=== PATIENT | male | born 1985 | race Two or more races ===

== ENCOUNTER 2017-07-15 05:37 | Observation (INO) | payer OTHER ==
[2017-07-15] MEDS ORDERED: Metronidazole 500 MG in NS 100 ML IVPB (07:00)
[2017-07-15] MEDS ORDERED: CIPROFLOXACIN 400 MG in D5W 200 ML IVPB (07:00)
[2017-07-15] MEDS ORDERED: SOD CHLORIDE 0.9% 1,000 ML IV (07:00)
[2017-07-15] MEDS ORDERED: BUPIVACAINE 0.25% (MPF) 30 ML INJ (07:12)
[2017-07-15] MEDS ORDERED: ROPIVACAINE 0.5 % 30 ML VIAL (07:31)
[2017-07-15] MEDS ORDERED: PROPOFOL 20 ML (07:31)
[2017-07-15] MEDS ORDERED: MIDAZOLAM 1 MG/ML 2 ML INJ (07:31)
[2017-07-15] MEDS ORDERED: ONDANSETRON 4 MG INJ (07:31)
[2017-07-15] MEDS ORDERED: HYDROmorphONE 2 MG/ML SYG (07:31)
[2017-07-15] MEDS ORDERED: metroNIDAZOLE 500 MG/NS (PMX) 100 ML IVPB (07:31)
[2017-07-15] MEDS ORDERED: METOCLOPRAMIDE 10 MG INJ (07:31)
[2017-07-15] MEDS ORDERED: ROCURONIUM 50 MG INJ ×2 (07:31→08:28)
[2017-07-15] MEDS: POLYMYXIN/BACITRACIN 1L IRRIG IRR (07:37)
[2017-07-15] MEDS: BUPIVACAINE 0.25% (MPF) 30 ML INJ INJ (07:37)
[2017-07-15] MEDS ORDERED: NEOSTIGMINE 3 MG/3 ML SYRINGE (07:57)
[2017-07-15] MEDS ORDERED: CIPROFLOXACIN 400MG/D5W 200 ML (07:57)
[2017-07-15] MEDS ORDERED: EPHEDrine SULFATE 50 MG/5 ML SYG (08:28)
[2017-07-15] MEDS ORDERED: HYDROmorphONE (0.2 MG/ML) 10ML SYG IV ×3 (09:00)
[2017-07-15] MEDS ORDERED: MEPERIDINE 25 MG INJ IV (09:00)
[2017-07-15] MEDS ORDERED: ONDANSETRON 4 MG INJ IV (09:00)
[2017-07-15] MEDS ORDERED: DIPHENHYDRAMINE 50 MG INJ IV (09:00)
[2017-07-15] MEDS: SOD CHLORIDE 0.9% 1,000 ML IV ×2 (11:52→19:37)
[2017-07-15 12:25] LABS: ADD MAN DIFF? NO
[2017-07-15 12:28] LABS: BASOPHIL # 0.1 10^3/ul (0.0-0.1); BASOPHILS % 0.4 % (0.0-2.0); EOSINOPHILS # 0.1 10^3/ul (0.0-0.5); EOSINOPHILS % 0.9 % (0.0-7.0); HEMATOCRIT 45.1 % (42.0-52.0); HEMOGLOBIN 15.1 g/dl (14.0-18.0); LYMPHOCYTES # 1.9 10^3/ul (0.8-2.9); LYMPHOCYTES % 13.8 % (15.0-51.0); MEAN CORPUSCULAR HEMOGLOBIN 29.4 pg (29.0-33.0); MEAN CORPUSCULAR HGB CONC 33.5 g/dl (32.0-37.0); MEAN CORPUSCULAR VOLUME 87.7 fl (82.0-101.0); MEAN PLATELET VOLUME 10.5 fl (7.4-10.4); MONOCYTES % 7.2 % (0.0-11.0); NEUTROPHIL # 10.6 10^3/ul (1.6-7.5); PLATELET COUNT 254 10^3/UL (140-415); RED BLOOD COUNT 5.14 10^6/ul (4.70-6.10); RED CELL DISTRIBUTION WIDTH 11.9 % (11.5-14.5)
[2017-07-15 12:28] LABS: WHITE BLOOD COUNT 13.7 10^3/ul (4.8-10.8)
[2017-07-15 12:58] LABS: ALANINE AMINOTRANSFERASE 61 IU/L (13-69); ALBUMIN 3.9 g/dl (3.3-4.9); ALBUMIN/GLOBULIN RATIO 1.14; ALKALINE PHOSPHATASE 63 IU/L (42-121); ANION GAP 16 (8-16); ASPARTATE AMINO TRANSFERASE 50 IU/L (15-46); BILIRUBIN,INDIRECT 0.4 mg/dl (0-1.1); BILIRUBIN,TOTAL 0.4 mg/dl (0.2-1.3); BLOOD UREA NITROGEN 11 mg/dl (7-20); CALCIUM 8.5 mg/dl (8.4-10.2); CARBON DIOXIDE 26 mmol/L (21-31); CHLORIDE 104 mmol/L (97-110); CREATININE 0.72 mg/dl (0.61-1.24); GLUCOSE 119 mg/dl (70-220); POTASSIUM 4.4 mmol/L (3.5-5.1); SODIUM 142 mmol/L (135-144); TOTAL PROTEIN 7.3 g/dl (6.1-8.1)
[2017-07-15] MEDS: morphine 2 MG INJ IV ×2 (16:11→19:39)
[2017-07-15] MEDS: metroNIDAZOLE 500 MG/NS (PMX) 100 ML IVPB (16:11)
[2017-07-15] MEDS ORDERED: ACETAMINOPHEN 325 MG TAB PO (21:00)
[2017-07-15] MEDS: HYDROmorphONE 0.5 MG/0.5 ML SYG IV (21:13)
[2017-07-15] MEDS: ACETAMINOPHEN 650MG/20.3ML CUP PO (21:21)
[2017-07-15] MEDS: CIPROFLOXACIN 400MG/D5W 200 ML IVPB (21:25)
[2017-07-16] MEDS: SOD CHLORIDE 0.9% 1,000 ML IV ×3 (00:08→15:06)
[2017-07-16] MEDS: metroNIDAZOLE 500 MG/NS (PMX) 100 ML IVPB ×2 (00:08→09:40)
[2017-07-16] MEDS: HYDROmorphONE 0.5 MG/0.5 ML SYG IV ×7 (00:15→22:04)
[2017-07-16] MEDS: PANTOPRAZOLE 40 MG INJ IV (06:30)
[2017-07-16 07:09] LABS: ADD MAN DIFF? NO
[2017-07-16 07:13] LABS: WHITE BLOOD COUNT 13.9 10^3/ul (4.8-10.8)
[2017-07-16 07:13] LABS: BASOPHILS % 0.2 % (0.0-2.0); EOSINOPHILS # 0.4 10^3/ul (0.0-0.5); EOSINOPHILS % 2.6 % (0.0-7.0); HEMATOCRIT 45.3 % (42.0-52.0); HEMOGLOBIN 14.9 g/dl (14.0-18.0); LYMPHOCYTES # 1.9 10^3/ul (0.8-2.9); LYMPHOCYTES % 13.8 % (15.0-51.0); MEAN CORPUSCULAR HEMOGLOBIN 29.1 pg (29.0-33.0); MEAN CORPUSCULAR HGB CONC 32.9 g/dl (32.0-37.0); MEAN CORPUSCULAR VOLUME 88.5 fl (82.0-101.0); MEAN PLATELET VOLUME 10.7 fl (7.4-10.4); MONOCYTE # 1.4 10^3/ul (0.3-0.9); MONOCYTES % 10.3 % (0.0-11.0); NEUTROPHIL # 10.1 10^3/ul (1.6-7.5); NEUTROPHILS % 72.5 % (39.0-77.0); PLATELET COUNT 251 10^3/UL (140-415); RED BLOOD COUNT 5.12 10^6/ul (4.70-6.10); RED CELL DISTRIBUTION WIDTH 11.9 % (11.5-14.5)
[2017-07-16 07:40] LABS: ALANINE AMINOTRANSFERASE 60 IU/L (13-69); ALBUMIN 3.8 g/dl (3.3-4.9); ALBUMIN/GLOBULIN RATIO 1.22; ALKALINE PHOSPHATASE 56 IU/L (42-121); ANION GAP 10 (8-16); ASPARTATE AMINO TRANSFERASE 34 IU/L (15-46); BILIRUBIN,INDIRECT 1.2 mg/dl (0-1.1); BILIRUBIN,TOTAL 1.2 mg/dl (0.2-1.3); BLOOD UREA NITROGEN 8 mg/dl (7-20); CALCIUM 8.8 mg/dl (8.4-10.2); CARBON DIOXIDE 31 mmol/L (21-31); CHLORIDE 103 mmol/L (97-110); GLUCOSE 118 mg/dl (70-220); POTASSIUM 4.2 mmol/L (3.5-5.1); SODIUM 140 mmol/L (135-144); TOTAL PROTEIN 6.9 g/dl (6.1-8.1)
[2017-07-16] MEDS: DIATR MEGLU/DIATRIZOATE SODIUM 120 ML BTL ×2 (08:08→09:00)
[2017-07-16] MEDS: CIPROFLOXACIN 400MG/D5W 200 ML IVPB (10:40)
[2017-07-16] MEDS: LEVALBUTEROL (NEB) 0.63 MG/3 ML AMP HHN (17:58)
[2017-07-16] MEDS: ALBUTEROL/IPRATROPIUM (NEB) 3 ML AMP HHN (19:17)
[2017-07-17] MEDS: HYDROmorphONE 0.5 MG/0.5 ML SYG IV ×4 (00:36→09:29)
[2017-07-17] MEDS: SOD CHLORIDE 0.9% 1,000 ML IV ×2 (00:37→11:54)
[2017-07-17 06:47] LABS: ADD MAN DIFF? NO
[2017-07-17 06:53] LABS: BASOPHILS % 0.4 % (0.0-2.0); EOSINOPHILS # 0.5 10^3/ul (0.0-0.5); HEMATOCRIT 41.9 % (42.0-52.0); HEMOGLOBIN 13.8 g/dl (14.0-18.0); LYMPHOCYTES # 2.4 10^3/ul (0.8-2.9); LYMPHOCYTES % 22.6 % (15.0-51.0); MEAN CORPUSCULAR HEMOGLOBIN 29.4 pg (29.0-33.0); MEAN CORPUSCULAR HGB CONC 32.9 g/dl (32.0-37.0); MEAN CORPUSCULAR VOLUME 89.1 fl (82.0-101.0); MEAN PLATELET VOLUME 10.8 fl (7.4-10.4); MONOCYTE # 1.2 10^3/ul (0.3-0.9); MONOCYTES % 11.8 % (0.0-11.0); NEUTROPHIL # 6.3 10^3/ul (1.6-7.5); NEUTROPHILS % 59.8 % (39.0-77.0); PLATELET COUNT 251 10^3/UL (140-415)
[2017-07-17 06:53] LABS: WHITE BLOOD COUNT 10.5 10^3/ul (4.8-10.8)
[2017-07-17] MEDS: PANTOPRAZOLE 40 MG INJ IV (07:05)
[2017-07-17 07:15] LABS: ALANINE AMINOTRANSFERASE 33 IU/L (13-69); ALBUMIN 3.6 g/dl (3.3-4.9); ALBUMIN/GLOBULIN RATIO 1.09; ALKALINE PHOSPHATASE 53 IU/L (42-121); ANION GAP 11 (8-16); ASPARTATE AMINO TRANSFERASE 22 IU/L (15-46); BILIRUBIN,INDIRECT 1.2 mg/dl (0-1.1); BILIRUBIN,TOTAL 1.2 mg/dl (0.2-1.3); BLOOD UREA NITROGEN 10 mg/dl (7-20); CALCIUM 8.8 mg/dl (8.4-10.2); CARBON DIOXIDE 30 mmol/L (21-31); CHLORIDE 103 mmol/L (97-110); CREATININE 0.74 mg/dl (0.61-1.24); GLUCOSE 95 mg/dl (70-220); POTASSIUM 3.9 mmol/L (3.5-5.1); SODIUM 140 mmol/L (135-144); TOTAL PROTEIN 6.9 g/dl (6.1-8.1)
== END 2017-07-17 16:45 | disposition home or self-care (01) ==
LOC: SDS 05:37 → REC 09:37 → PP2 10:55
PROVIDERS: Surgery
DX: K21.9 Gastro-esophageal reflux disease without esophagitis (principal); K95.89 Other complications of other bariatric procedure; Y84.8 Other medical procedures as the cause of abnormal reaction of the patient, or of later complication, without mention of misadventure at the time of the procedure
CPT/HCPCS: 43280; 71045; 74240; 80053; 85025; 94640; 94664; 99217; G0378

== ENCOUNTER 2017-08-12 06:32 | Observation (INO) | payer OTHER ==
[~2017-08-12 06:32] MED LIST: ATROPINE 1 MG/10 ML SYRINGE IV; DEXAMETHASONE 4 MG/ML 1 ML INJ; DIPHENHYDRAMINE 50 MG INJ IV; EPHEDrine SULFATE 50 MG/5 ML SYG IV; FENTAnyl 50 MCG/ML VIAL; FENTAnyl 50 MCG/ML VIAL IV; GLYCOPYRROLATE 0.4 MG INJ; HYDROmorphONE (0.2 MG/ML) 10ML SYG IV; LABETALOL HCL 20MG INJ IV; LIDOCAINE 2% (SDV) 5 ML INJ; MIDAZOLAM 1 MG/ML 2 ML INJ; MIDAZOLAM 1 MG/ML 2 ML INJ IV; NEOSTIGMINE 3 MG/3 ML SYRINGE; ONDANSETRON 4 MG INJ; ONDANSETRON 4 MG INJ IV; OXYCODONE/ACETAMINOPHEN (5/325) TAB PO; PROPOFOL 20 ML; ROCURONIUM 50 MG INJ; ROPIVACAINE 0.5 % 30 ML VIAL; hydrALAzine 20 MG INJ IV; morphine (1 MG/ML) 10ML SYRINGE IV
[2017-08-12] MEDS ORDERED: SUCCINYLCHOLINE CHLORIDE 100 MG/5 ML SYG IV (06:39)
[2017-08-12] MEDS ORDERED: LABETALOL 100MG INJ (07:00)
[2017-08-12] MEDS ORDERED: hydrALAzine 20 MG INJ (07:00)
[2017-08-12] MEDS: POLYMYXIN/BACITRACIN 1L IRRIG IRR (08:10)
[2017-08-12] MEDS: morphine SULFATE/PF (10 MG/10 ML) INJ (10:20)
[2017-08-12] MEDS: ROPIVACAINE 0.5 % 30 ML VIAL (10:20)
[2017-08-12] MEDS ORDERED: POLYMYXIN/BACITRACIN 1L IRRIG (10:47)
[2017-08-12] MEDS: MEPERIDINE 25 MG INJ IV (10:51)
[2017-08-12] MEDS: HYDROmorphONE (0.2 MG/ML) 10ML SYG IV ×2 (10:51→10:53)
[2017-08-12] MEDS: KETOROLAC 30 MG INJ IV (10:54)
[2017-08-12] MEDS: FENTAnyl 50 MCG/ML VIAL IV (11:42)
[2017-08-12] MEDS: HYDROCODONE/APAP (10/325) TAB PO (14:09)
[2017-08-12] MEDS ORDERED: ONDANSETRON 4 MG INJ IV (15:30)
[2017-08-12] MEDS: VANCOMYCIN 1 GM (PMX) 250 ML IVPB (16:42)
[2017-08-12] MEDS: OXYCODONE/ACETAMINOPHEN (5/325) TAB PO ×2 (16:42→23:31)
[2017-08-12] MEDS: morphine 2 MG INJ IV (19:44)
[2017-08-13] MEDS: VANCOMYCIN 1 GM (PMX) 250 ML IVPB (04:08)
[2017-08-13] MEDS: OXYCODONE/ACETAMINOPHEN (5/325) TAB PO ×4 (04:11→18:14)
[2017-08-13] MEDS: morphine 10 MG INJ IV ×2 (12:08→16:58)
[2017-08-13] MEDS: RIVAROXABAN 10 MG TABLET PO (18:16)
[2017-08-13] MEDS: PREGABALIN 75 MG CAP PO (20:25)
[2017-08-13] MEDS: oxyCODONE 5 MG TAB PO (20:25)
[2017-08-13] MEDS: MINERAL OIL 30ML CUP PO (20:26)
[2017-08-13] MEDS: SENNA/DOCUSATE NA (8.6MG/50MG) TAB PO (20:26)
[2017-08-13] MEDS: POLYETHYLENE GLYCOL 17 GM PACKET PO (20:29)
[2017-08-13] MEDS: DIPHENHYDRAMINE 25 MG CAP PO (22:24)
[2017-08-13] MEDS: HYDROmorphONE 1 MG/ML SYG IV (23:31)
[2017-08-14] MEDS: oxyCODONE 5 MG TAB PO ×7 (00:04→23:30)
[2017-08-14] MEDS: DIPHENHYDRAMINE 25 MG CAP PO ×3 (03:06→21:32)
[2017-08-14] MEDS: HYDROmorphONE 1 MG/ML SYG IV ×4 (03:06→14:11)
[2017-08-14] MEDS: SENNA/DOCUSATE NA (8.6MG/50MG) TAB PO (09:31)
[2017-08-14] MEDS: HYDROmorphONE 2 MG TAB PO ×2 (17:06→21:32)
[2017-08-14] MEDS: RIVAROXABAN 10 MG TABLET PO (18:02)
[2017-08-15] MEDS: HYDROmorphONE 2 MG TAB PO ×3 (01:49→09:49)
[2017-08-15] MEDS: ERGOCALCIFEROL 50,000 UNIT CAP PO (01:49)
[2017-08-15] MEDS: oxyCODONE 5 MG TAB PO ×3 (04:15→12:38)
[2017-08-15] MEDS: SENNA/DOCUSATE NA (8.6MG/50MG) TAB PO (09:06)
== END 2017-08-15 13:41 | disposition home or self-care (01) ==
LOC: SDS 06:32 → MS1 16:24 → SDS 16:38 → MS1 15:13
DX: S83.511A Sprain of anterior cruciate ligament of right knee, initial encounter (principal); S83.241A Other tear of medial meniscus, current injury, right knee, initial encounter; S83.281A Other tear of lateral meniscus, current injury, right knee, initial encounter; X58.XXXA Exposure to other specified factors, initial encounter; Z88.0 Allergy status to penicillin
CPT/HCPCS: 29881; 82306; 97116; 97161

== ENCOUNTER 2018-05-02 06:00 | Day surgery (SDC) | payer OTHER ==
[~2018-05-02 06:00] MED LIST changes: -ATROPINE 1 MG/10 ML SYRINGE IV; -DEXAMETHASONE 4 MG/ML 1 ML INJ; -DIPHENHYDRAMINE 50 MG INJ IV; -EPHEDrine SULFATE 50 MG/5 ML SYG IV; -FENTAnyl 50 MCG/ML VIAL; -FENTAnyl 50 MCG/ML VIAL IV; -GLYCOPYRROLATE 0.4 MG INJ; -HYDROmorphONE (0.2 MG/ML) 10ML SYG IV; -LABETALOL HCL 20MG INJ IV; -LIDOCAINE 2% (SDV) 5 ML INJ; -MIDAZOLAM 1 MG/ML 2 ML INJ; -MIDAZOLAM 1 MG/ML 2 ML INJ IV; -NEOSTIGMINE 3 MG/3 ML SYRINGE; -ONDANSETRON 4 MG INJ; -ONDANSETRON 4 MG INJ IV; -OXYCODONE/ACETAMINOPHEN (5/325) TAB PO; -PROPOFOL 20 ML; -ROCURONIUM 50 MG INJ; -ROPIVACAINE 0.5 % 30 ML VIAL; +SOD CHLORIDE 0.9% 1,000 ML IV; +[UNRECOGNIZED DRUG - REMARK] XX; -hydrALAzine 20 MG INJ IV; -morphine (1 MG/ML) 10ML SYRINGE IV
[2018-05-02] MEDS: SOD CHLORIDE 0.9% 1,000 ML IV (06:59)
[2018-05-02] MEDS ORDERED: DESFLURANE 15 MIN (07:00)
[2018-05-02 07:13] LABS: ADD MAN DIFF? NO
[2018-05-02 07:17] LABS: BASOPHILS % 0.5 % (0.0-2.0); EOSINOPHILS # 0.4 10^3/ul (0.0-0.5); EOSINOPHILS % 4.4 % (0.0-7.0); HEMATOCRIT 47.7 % (42.0-52.0); HEMOGLOBIN 16.1 g/dl (14.0-18.0); LYMPHOCYTES # 2.9 10^3/ul (0.8-2.9); MEAN CORPUSCULAR HEMOGLOBIN 29.3 pg (29.0-33.0); MEAN CORPUSCULAR HGB CONC 33.8 g/dl (32.0-37.0); MEAN CORPUSCULAR VOLUME 86.7 fl (82.0-101.0); MEAN PLATELET VOLUME 10.4 fl (7.4-10.4); MONOCYTE # 0.8 10^3/ul (0.3-0.9); MONOCYTES % 10.3 % (0.0-11.0); NEUTROPHIL # 3.9 10^3/ul (1.6-7.5); NEUTROPHILS % 48.4 % (39.0-77.0); PLATELET COUNT 295 10^3/UL (140-415); RED CELL DISTRIBUTION WIDTH 11.7 % (11.5-14.5)
[2018-05-02 07:20] LABS: INR 0.95; PROTIME 12.8 Sec (11.9-14.9)
[2018-05-02 07:21] LABS: PARTIAL THROMBOPLASTIN TIME 27.5 Sec (23.0-35.0)
[2018-05-02 07:23] LABS: ALANINE AMINOTRANSFERASE 43 IU/L (13-69); ALBUMIN 4.6 g/dl (3.3-4.9); ALBUMIN/GLOBULIN RATIO 1.24; ALKALINE PHOSPHATASE 66 IU/L (42-121); ANION GAP 13 (5-13); ASPARTATE AMINO TRANSFERASE 30 IU/L (15-46); BILIRUBIN,INDIRECT 0.4 mg/dl (0-1.1); BILIRUBIN,TOTAL 0.4 mg/dl (0.2-1.3); BLOOD UREA NITROGEN 16 mg/dl (7-20); CALCIUM 9.7 mg/dl (8.4-10.2); CARBON DIOXIDE 26 mmol/L (21-31); CHLORIDE 103 mmol/L (97-110); CREATININE 0.82 mg/dl (0.61-1.24); Estimated GFR > 60 mL/min (>60); GLUCOSE 106 mg/dl (70-220); POTASSIUM 4.1 mmol/L (3.5-5.1); SODIUM 142 mmol/L (135-144); TOTAL PROTEIN 8.3 g/dl (6.1-8.1)
[2018-05-02] MEDS ORDERED: BUPIVACAINE 0.25% (MPF) 30 ML INJ (07:47)
[2018-05-02] MEDS: CLINDAMYCIN 600 MG/D5W (PMX) 50 ML IVPB (08:03)
[2018-05-02] MEDS ORDERED: PROPOFOL 20 ML (08:05)
[2018-05-02] MEDS ORDERED: FENTAnyl 50 MCG/ML VIAL ×2 (08:05→08:24)
[2018-05-02] MEDS ORDERED: ROCURONIUM 50 MG INJ (08:05)
[2018-05-02] MEDS ORDERED: LIDOCAINE 1% (MDV) 20 ML INJ (08:05)
[2018-05-02] MEDS ORDERED: DEXAMETHASONE 4 MG/ML 5 ML INJ (08:15)
[2018-05-02] MEDS ORDERED: ONDANSETRON 4 MG INJ (08:15)
[2018-05-02] MEDS ORDERED: ROPIVACAINE 0.5 % 30 ML VIAL (08:16)
[2018-05-02] MEDS ORDERED: HYDROmorphONE 1 MG/5 ML IV SYRINGE IV (08:30)
[2018-05-02] MEDS ORDERED: GLYCOPYRROLATE 0.4 MG INJ (08:34)
[2018-05-02] MEDS ORDERED: NEOSTIGMINE 3 MG/3 ML SYRINGE ×2 (08:34)
[2018-05-02] MEDS ORDERED: MEPERIDINE 25 MG INJ (09:10)
[2018-05-02] MEDS: HYDROmorphONE 1 MG/5 ML IV SYRINGE IV (09:35)
[2018-05-02] MEDS: MEPERIDINE 25 MG INJ IV (09:40)
[2018-05-02] MEDS: HYDROCODONE/APAP (5/325) TAB PO (11:00)
== END 2018-05-02 12:17 | disposition home or self-care (01) ==
LOC: SDS 06:00
DX: K80.20 Calculus of gallbladder without cholecystitis without obstruction (principal)
CPT/HCPCS: 47562; 80053; 85025; 85610; 85730; 88304

== ENCOUNTER 2018-05-08 12:10 | Emergency (ER) | payer OTHER ==
[2018-05-08] MEDS: ONDANSETRON (ODT) 4 MG TAB ODT (14:53)
[2018-05-08] MEDS: HYDROCODONE/APAP (5/325) TAB PO (14:53)
[2018-05-08 14:56] LABS: ADD MAN DIFF? NO
[2018-05-08 15:00] LABS: BASOPHIL # 0.1 10^3/ul (0.0-0.1); BASOPHILS % 0.3 % (0.0-2.0); EOSINOPHILS # 0.6 10^3/ul (0.0-0.5); EOSINOPHILS % 3.5 % (0.0-7.0); HEMATOCRIT 47.5 % (42.0-52.0); HEMOGLOBIN 15.9 g/dl (14.0-18.0); LYMPHOCYTES # 2.9 10^3/ul (0.8-2.9); MEAN CORPUSCULAR HEMOGLOBIN 28.8 pg (29.0-33.0); MEAN CORPUSCULAR HGB CONC 33.5 g/dl (32.0-37.0); MEAN CORPUSCULAR VOLUME 85.9 fl (82.0-101.0); MEAN PLATELET VOLUME 9.9 fl (7.4-10.4); MONOCYTE # 1.4 10^3/ul (0.3-0.9); MONOCYTES % 8.6 % (0.0-11.0); NEUTROPHIL # 10.9 10^3/ul (1.6-7.5); NEUTROPHILS % 69.2 % (39.0-77.0); PLATELET COUNT 340 10^3/UL (140-415); RED BLOOD COUNT 5.53 10^6/ul (4.70-6.10); RED CELL DISTRIBUTION WIDTH 11.8 % (11.5-14.5)
[2018-05-08 15:00] LABS: WHITE BLOOD COUNT 15.8 10^3/ul (4.8-10.8)
[2018-05-08 15:12] LABS: ADD UMIC NO; UR ASCORBIC ACID NEGATIVE (NEGATIVE); UR BILIRUBIN (Dip) NEGATIVE (NEGATIVE); UR BLOOD (Dip) NEGATIVE (NEGATIVE); UR CALCIUM OXALATE CRYSTAL FEW /HPF (NONE SEEN); UR CLARITY SLIGHTLY CLOUDY (CLEAR); UR COLOR YELLOW (YELLOW); UR GLUCOSE (Dip) NEGATIVE (NEGATIVE); UR KETONES (Dip) NEGATIVE (NEGATIVE); UR LEUKOCYTE ESTERASE (Dip) NEGATIVE Leu/ul (NEGATIVE); UR MUCUS MODERATE /HPF (NONE SEEN); UR NITRITE (Dip) NEGATIVE (NEGATIVE); UR RBC 20 /HPF (0-5); UR SPECIFIC GRAVITY (Dip) 1.027 (1.003-1.030); UR TOTAL PROTEIN (Dip) NEGATIVE (NEGATIVE); UR UROBILINOGEN (Dip) NEGATIVE (NEGATIVE); UR WBC 1 /HPF (0-5)
[2018-05-08 15:17] LABS: ALANINE AMINOTRANSFERASE 37 IU/L (13-69); ALBUMIN 4.6 g/dl (3.3-4.9); ALBUMIN/GLOBULIN RATIO 1.15; ALKALINE PHOSPHATASE 70 IU/L (42-121); ANION GAP 12 (5-13); ASPARTATE AMINO TRANSFERASE 25 IU/L (15-46); BILIRUBIN,INDIRECT 0.2 mg/dl (0-1.1); BILIRUBIN,TOTAL 0.2 mg/dl (0.2-1.3); BLOOD UREA NITROGEN 12 mg/dl (7-20); CALCIUM 9.7 mg/dl (8.4-10.2); CARBON DIOXIDE 29 mmol/L (21-31); CHLORIDE 101 mmol/L (97-110); CREATININE 0.76 mg/dl (0.61-1.24); Estimated GFR > 60 mL/min (>60); GLUCOSE 89 mg/dl (70-220); LIPASE 75 U/L (23-300); POTASSIUM 4.3 mmol/L (3.5-5.1); SODIUM 142 mmol/L (135-144); TOTAL PROTEIN 8.6 g/dl (6.1-8.1)
== END 2018-05-08 16:15 | disposition home or self-care (01) ==
LOC: FTE 12:10
DX: R10.9 Unspecified abdominal pain (principal); F17.210 Nicotine dependence, cigarettes, uncomplicated
CPT/HCPCS: 36415; 74176; 80053; 81001; 81003; 83690; 85025; 99284-25

== ENCOUNTER 2018-07-14 06:21 | Inpatient (IN) | payer OTHER ==
[2018-07-14] MEDS: CLINDAMYCIN 600 MG/D5W (PMX) 50 ML IVPB ×3 (06:00→18:14)
[2018-07-14 07:26] LABS: ADD MAN DIFF? NO
[2018-07-14 07:30] LABS: WHITE BLOOD COUNT 9.2 10^3/ul (4.8-10.8)
[2018-07-14 07:30] LABS: BASOPHILS % 0.4 % (0.0-2.0); EOSINOPHILS # 0.6 10^3/ul (0.0-0.5); EOSINOPHILS % 6.3 % (0.0-7.0); HEMATOCRIT 42.9 % (42.0-52.0); HEMOGLOBIN 14.2 g/dl (14.0-18.0); LYMPHOCYTES # 3.8 10^3/ul (0.8-2.9); LYMPHOCYTES % 41.5 % (15.0-51.0); MEAN CORPUSCULAR HEMOGLOBIN 28.8 pg (29.0-33.0); MEAN CORPUSCULAR HGB CONC 33.1 g/dl (32.0-37.0); MEAN PLATELET VOLUME 10.8 fl (7.4-10.4); MONOCYTE # 0.9 10^3/ul (0.3-0.9); MONOCYTES % 10.3 % (0.0-11.0); NEUTROPHIL # 3.7 10^3/ul (1.6-7.5); NEUTROPHILS % 40.8 % (39.0-77.0); PLATELET COUNT 290 10^3/UL (140-415); RED BLOOD COUNT 4.93 10^6/ul (4.70-6.10); RED CELL DISTRIBUTION WIDTH 12.9 % (11.5-14.5)
[2018-07-14] MEDS: SOD CHLORIDE 0.9% 1,000 ML IV ×3 (07:36→21:59)
[2018-07-14 07:48] LABS: PROTIME 12.3 Sec (11.9-14.9)
[2018-07-14 07:58] LABS: ALANINE AMINOTRANSFERASE 32 IU/L (13-69); ALBUMIN 4.1 g/dl (3.3-4.9); ALBUMIN/GLOBULIN RATIO 1.28; ALKALINE PHOSPHATASE 81 IU/L (42-121); ANION GAP 11 (5-13); ASPARTATE AMINO TRANSFERASE 20 IU/L (15-46); BILIRUBIN,INDIRECT 0.4 mg/dl (0-1.1); BILIRUBIN,TOTAL 0.4 mg/dl (0.2-1.3); BLOOD UREA NITROGEN 15 mg/dl (7-20); CALCIUM 9.2 mg/dl (8.4-10.2); CARBON DIOXIDE 25 mmol/L (21-31); CHLORIDE 108 mmol/L (97-110); CREATININE 0.81 mg/dl (0.61-1.24); Estimated GFR > 60 mL/min (>60); GLUCOSE 114 mg/dl (70-220); POTASSIUM 3.9 mmol/L (3.5-5.1); SODIUM 144 mmol/L (135-144); TOTAL PROTEIN 7.3 g/dl (6.1-8.1)
[2018-07-14 09:04] LABS: PARTIAL THROMBOPLASTIN TIME 24.7 Sec (23.0-35.0)
[2018-07-14] MEDS ORDERED: CEFAZOLIN 1 GM INJ (09:10)
[2018-07-14] MEDS ORDERED: GLYCOPYRROLATE 0.4 MG INJ (09:10)
[2018-07-14] MEDS ORDERED: MIDAZOLAM 1 MG/ML 2 ML INJ (09:10)
[2018-07-14] MEDS ORDERED: ROCURONIUM 50 MG INJ ×2 (09:10→10:31)
[2018-07-14] MEDS ORDERED: NEOSTIGMINE 3 MG/3 ML SYRINGE (09:10)
[2018-07-14] MEDS ORDERED: PROPOFOL 20 ML (09:10)
[2018-07-14] MEDS ORDERED: DEXAMETHASONE 4 MG/ML 5 ML INJ (09:11)
[2018-07-14] MEDS ORDERED: ONDANSETRON 4 MG INJ (09:11)
[2018-07-14] MEDS ORDERED: FENTAnyl 50 MCG/ML VIAL (09:11)
[2018-07-14] MEDS ORDERED: ROPIVACAINE 0.5 % 30 ML VIAL (09:24)
[2018-07-14] MEDS ORDERED: MIDAZOLAM 1 MG/ML 2 ML INJ IV (09:30)
[2018-07-14] MEDS ORDERED: TRIMETHOBENZAMIDE 100 MG/ML VIAL IM (09:30)
[2018-07-14] MEDS ORDERED: ALBUTEROL 0.083% (NEB) 2.5 MG/3 ML AMP HHN (09:30)
[2018-07-14] MEDS ORDERED: IPRATROPIUM (NEB) 0.5 MG/2.5 ML AMP HHN (09:30)
[2018-07-14] MEDS ORDERED: FENTAnyl 50 MCG/ML VIAL IV ×3 (09:30)
[2018-07-14] MEDS ORDERED: EPHEDrine SULFATE 50 MG/5 ML SYG IV (09:30)
[2018-07-14] MEDS ORDERED: OXYCODONE/ACETAMINOPHEN (5/325) TAB PO ×2 (09:30)
[2018-07-14] MEDS ORDERED: HYDROmorphONE 1 MG/5 ML IV SYRINGE IV (09:30)
[2018-07-14] MEDS ORDERED: DIPHENHYDRAMINE 50 MG INJ IV (09:30)
[2018-07-14] MEDS ORDERED: LABETALOL HCL 20MG INJ IV (09:30)
[2018-07-14] MEDS ORDERED: hydrALAzine 20 MG INJ IV (09:30)
[2018-07-14] MEDS: BUPIVACAINE 0.25% (MPF) 30 ML INJ (10:08)
[2018-07-14] MEDS ORDERED: SUGAMMADEX SODIUM 200 MG/2 ML VIAL IV (11:20)
[2018-07-14] MEDS ORDERED: OXYCODONE 5 MG/5 ML POSYG PO ×2 (11:30→12:00)
[2018-07-14] MEDS ORDERED: ONDANSETRON 4 MG INJ IV (11:30)
[2018-07-14] MEDS: HYDROmorphONE 1 MG/5 ML IV SYRINGE IV ×2 (11:37→11:55)
[2018-07-14] MEDS: ONDANSETRON 4 MG INJ IV (11:38)
[2018-07-14] MEDS: MEPERIDINE 25 MG INJ IV (11:38)
[2018-07-14 11:57] LABS: ADD MAN DIFF? NO
[2018-07-14 12:17] LABS: BASOPHIL # 0.1 10^3/ul (0.0-0.1); BASOPHILS % 0.6 % (0.0-2.0); EOSINOPHILS # 0.5 10^3/ul (0.0-0.5); EOSINOPHILS % 5.7 % (0.0-7.0); HEMATOCRIT 44.4 % (42.0-52.0); HEMOGLOBIN 14.6 g/dl (14.0-18.0); LYMPHOCYTES # 4.2 10^3/ul (0.8-2.9); LYMPHOCYTES % 46.5 % (15.0-51.0); MEAN CORPUSCULAR HEMOGLOBIN 28.9 pg (29.0-33.0); MEAN CORPUSCULAR HGB CONC 32.9 g/dl (32.0-37.0); MEAN CORPUSCULAR VOLUME 87.7 fl (82.0-101.0); MEAN PLATELET VOLUME 10.5 fl (7.4-10.4); MONOCYTE # 0.7 10^3/ul (0.3-0.9); MONOCYTES % 7.6 % (0.0-11.0); NEUTROPHIL # 3.5 10^3/ul (1.6-7.5); NEUTROPHILS % 38.4 % (39.0-77.0); PLATELET COUNT 289 10^3/UL (140-415); RED BLOOD COUNT 5.06 10^6/ul (4.70-6.10); RED CELL DISTRIBUTION WIDTH 13.2 % (11.5-14.5)
[2018-07-14 12:24] LABS: ALANINE AMINOTRANSFERASE 45 IU/L (13-69); ALBUMIN/GLOBULIN RATIO 1.42; ALKALINE PHOSPHATASE 66 IU/L (42-121); ANION GAP 11 (5-13); ASPARTATE AMINO TRANSFERASE 32 IU/L (15-46); BILIRUBIN,INDIRECT 0.3 mg/dl (0-1.1); BILIRUBIN,TOTAL 0.3 mg/dl (0.2-1.3); BLOOD UREA NITROGEN 14 mg/dl (7-20); CALCIUM 8.6 mg/dl (8.4-10.2); CARBON DIOXIDE 25 mmol/L (21-31); CHLORIDE 108 mmol/L (97-110); CREATININE 0.78 mg/dl (0.61-1.24); Estimated GFR > 60 mL/min (>60); GLUCOSE 117 mg/dl (70-220); POTASSIUM 4.5 mmol/L (3.5-5.1); SODIUM 144 mmol/L (135-144); TOTAL PROTEIN 6.8 g/dl (6.1-8.1)
[2018-07-14] MEDS: oxyCODONE 5 MG TAB PO (12:30)
[2018-07-14] MEDS: morphine 2 MG INJ IV ×4 (14:17→21:58)
[2018-07-15] MEDS: CLINDAMYCIN 600 MG/D5W (PMX) 50 ML IVPB ×5 (00:20→23:15)
[2018-07-15] MEDS: HYDROmorphONE 0.5 MG/0.5 ML SYG IV ×8 (00:20→23:15)
[2018-07-15 05:11] LABS: ADD MAN DIFF? NO
[2018-07-15 05:22] LABS: WHITE BLOOD COUNT 11.4 10^3/ul (4.8-10.8)
[2018-07-15 05:22] LABS: BASOPHILS % 0.2 % (0.0-2.0); LYMPHOCYTES # 1.6 10^3/ul (0.8-2.9); LYMPHOCYTES % 14.3 % (15.0-51.0); MEAN CORPUSCULAR HEMOGLOBIN 28.7 pg (29.0-33.0); MEAN CORPUSCULAR HGB CONC 33.3 g/dl (32.0-37.0); MEAN CORPUSCULAR VOLUME 86.2 fl (82.0-101.0); MEAN PLATELET VOLUME 10.5 fl (7.4-10.4); MONOCYTE # 0.9 10^3/ul (0.3-0.9); MONOCYTES % 8.1 % (0.0-11.0); NEUTROPHIL # 8.8 10^3/ul (1.6-7.5); PLATELET COUNT 328 10^3/UL (140-415); RED BLOOD COUNT 5.22 10^6/ul (4.70-6.10); RED CELL DISTRIBUTION WIDTH 12.7 % (11.5-14.5)
[2018-07-15 05:28] LABS: ALANINE AMINOTRANSFERASE 39 IU/L (13-69); ALBUMIN/GLOBULIN RATIO 1.17; ALKALINE PHOSPHATASE 63 IU/L (42-121); ANION GAP 10 (5-13); ASPARTATE AMINO TRANSFERASE 24 IU/L (15-46); BILIRUBIN,INDIRECT 0.8 mg/dl (0-1.1); BILIRUBIN,TOTAL 0.8 mg/dl (0.2-1.3); BLOOD UREA NITROGEN 11 mg/dl (7-20); CALCIUM 9.3 mg/dl (8.4-10.2); CARBON DIOXIDE 27 mmol/L (21-31); CHLORIDE 104 mmol/L (97-110); CREATININE 0.62 mg/dl (0.61-1.24); Estimated GFR > 60 mL/min (>60); GLUCOSE 140 mg/dl (70-220); POTASSIUM 4.1 mmol/L (3.5-5.1); SODIUM 141 mmol/L (135-144); TOTAL PROTEIN 7.4 g/dl (6.1-8.1)
[2018-07-15] MEDS: PANTOPRAZOLE 40 MG INJ IV (06:53)
[2018-07-15] MEDS: SOD CHLORIDE 0.9% 1,000 ML IV ×2 (07:30→16:50)
[2018-07-16] MEDS: HYDROmorphONE 0.5 MG/0.5 ML SYG IV ×3 (01:31→08:37)
[2018-07-16] MEDS: CLINDAMYCIN 600 MG/D5W (PMX) 50 ML IVPB ×2 (05:17→12:51)
[2018-07-16] MEDS: SOD CHLORIDE 0.9% 1,000 ML IV ×2 (05:17→13:30)
[2018-07-16] MEDS: PANTOPRAZOLE 40 MG INJ IV (05:18)
[2018-07-16] MEDS: oxyCODONE 5 MG TAB PO (11:09)
== END 2018-07-16 15:40 | disposition home or self-care (01) | DRG 328 ==
LOC: REC 06:21 → MS1 12:55
PROC: 0DV44ZZ Restriction of Esophagogastric Junction, Percutaneous Endoscopic Approach (ICD-10-PCS; principal; 2018-07-14 08:30)
PROC: 0BUT4JZ Supplement Diaphragm with Synthetic Substitute, Percutaneous Endoscopic Approach (ICD-10-PCS; 2018-07-14 08:30)
PROC: 0FN04ZZ Release Liver, Percutaneous Endoscopic Approach (ICD-10-PCS; 2018-07-14 08:30)
DX: K44.9 Diaphragmatic hernia without obstruction or gangrene (principal); E66.9 Obesity, unspecified; Z68.37 Body mass index [BMI] 37.0-37.9, adult; K21.9 Gastro-esophageal reflux disease without esophagitis; F17.210 Nicotine dependence, cigarettes, uncomplicated; Z88.0 Allergy status to penicillin; Z90.49 Acquired absence of other specified parts of digestive tract; K66.0 Peritoneal adhesions (postprocedural) (postinfection)
CPT/HCPCS: 74240; 80053; 85025; 85610; 85730; 88304